=== PATIENT | female | born 1960 | race Caucasian/White ===

== ENCOUNTER 2016-12-11 14:51 | Emergency (ER) | payer MEDICAID, OTHER ==
[~2016-12-11] VITALS: Ht 154.9 cm; Wt 86.2 kg
[~2016-12-11 14:51] MED LIST: ALBU1.256 IH; FLUT1DIS5 IH; IPRA0.2S53 IH; MONT10TA22 PO
[2016-12-11 14:56] VITALS: BP_SYST 133
[2016-12-11] MEDS ORDERED: ALBUTEROL SULFATE 0.083% 2.5 MG/3 ML VIAL.NEB IH ONE (15:00)
[2016-12-11] MEDS ORDERED: IPRATROPIUM BROM 0.5 MG/2.5 ML VIAL.NEB (ATROVENT) IH ONE (15:00)
[2016-12-11] MEDS ORDERED: methylPREDNISolone SOD SUCC/PF 62.5 MG/ML VIAL IVP ONE (15:00)
[2016-12-11 15:56] LABS: BASOPHILS % (AUTO) 0.4 % (0.0-2.0); EOSINOPHILS # (AUTO) 0.1 K/uL (0.0-0.4); EOSINOPHILS % (AUTO) 1.3 % (0.0-4.0); HEMATOCRIT 38.9 % (36-48); HEMOGLOBIN 13.1 g/dL (12.0-16.0); LYMPHOCYTES # (AUTO) 1.3 K/uL (1.0-5.5); LYMPHOCYTES % (AUTO) 26.9 % (20.5-51.5); MEAN CORPUSCULAR HEMOGLOBIN 30 pg (27-31); MEAN CORPUSCULAR HGB CONC 34 % (32-36); MEAN CORPUSCULAR VOLUME 90 fL (79.0-98.0); MONOCYTES # (AUTO) 0.2 K/uL (0.0-1.0); MONOCYTES % (AUTO) 3.4 % (1.7-9.3); NEUTROPHILS # (AUTO) 3.1 K/uL (1.8-7.7); PLATELET COUNT (AUTO) 147 K/uL (130-430); RED BLOOD CELL COUNT(AUTO) 4.33 MIL/uL (4.2-6.2); RED CELL DISTRIBUTION WIDTH 12.6 % (9.0-15.0); WHITE BLOOD COUNT (AUTO) 4.7 K/uL (4.8-10.8)
[2016-12-11 16:02] LABS: PROTHROMBIN TIME 10.8 SECS (9.5-12.5)
[2016-12-11 16:20] LABS: CALCIUM 8.8 mg/dL (8.4-11.0); CREATININE 0.67 mg/dL (0.55-1.30); POTASSIUM 3.9 mmol/L (3.5-5.1)
[2016-12-11 17:42] VITALS: BP_SYST 143
== END 2016-12-11 17:42 | disposition home or self-care (01) ==
LOC: SED 14:51
DX: J45.901 Unspecified asthma with (acute) exacerbation (principal); I10 Essential (primary) hypertension; Z90.710 Acquired absence of both cervix and uterus; Z88.8 Allergy status to other drugs, medicaments and biological substances; Z91.018 Allergy to other foods
CPT/HCPCS: 36415; 71010; 80048; 83880; 84484; 85025; 85379; 85610; 85730; 93005; 94640; 96374; 99285; J2930

== ENCOUNTER 2020-01-03 20:02 | Emergency (ER) | payer BC, OTHER ==
[~2020-01-03] VITALS: Ht 154.9 cm; Wt 79.4 kg
[2020-01-03 20:02] VITALS: BP_SYST 156
[~2020-01-03 20:02] MED LIST changes: -ALBU1.256 IH; +ALBU1.257 IH
--- NOTE | 2020-01-03 20:05 | NUR ---
Patient to ER bed 2 to gown for evaluation. Side rails up.
--- NOTE | 2020-01-03 20:06 | NUR ---
ER Dr. Villa at bedside examining patient.
--- NOTE | 2020-01-03 20:07 | NUR ---
pt a&o x4 BIB ALS c/o of asthma exacerbation. pt reports sitting on her couch watching television with her cat on her lap when she started to wheeze, she took an albuterol treatment, but it did not seem to help or relieve her symptoms. pt called 911 for increased difficulty breathing. FIRE gave 0.5mg of EPI IM in the field. pt reports it helped relieve her symptoms. pt arrived on 2L NC with O2 sat of 96%. pt states she is allergic to cats. pt hx of asthma and HBP.
[2020-01-03] MEDS ORDERED: IPRATROPIUM/ALBUTEROL SULFATE 3 ML AMPUL.NEB (DUONEB) INH ONE (20:15)
[2020-01-03] MEDS ORDERED: methylPREDNISolone SOD SUCC/PF 62.5 MG/ML VIAL IVP ONE (20:15)
--- NOTE | 2020-01-03 20:25 | NUR ---
# 20 gauge angiocath placed to LAC. Use of asceptic technique. Opsite placed over site. Blood return noted. Flushed with 10 cc of normal saline. No evidence of infiltration noted. Patient tolerated well.
[2020-01-03 20:41] LABS: BASOPHILS # (AUTO) 0.1 K/uL (0.0-0.2); BASOPHILS % (AUTO) 1.6 % (0.0-2.0); EOSINOPHILS # (AUTO) 0.1 K/uL (0.0-0.4); EOSINOPHILS % (AUTO) 0.8 % (0.0-4.0); HEMATOCRIT 40.5 % (36-48); HEMOGLOBIN 13.9 g/dL (12.0-16.0); LYMPHOCYTES # (AUTO) 1.3 K/uL (1.0-5.5); LYMPHOCYTES % (AUTO) 17.5 % (20.5-51.5); MEAN CORPUSCULAR HEMOGLOBIN 31 pg (27-31); MEAN CORPUSCULAR HGB CONC 34 % (32-36); MEAN CORPUSCULAR VOLUME 91 fL (79.0-98.0); MONOCYTES # (AUTO) 0.3 K/uL (0.0-1.0); NEUTROPHILS # (AUTO) 5.7 K/uL (1.8-7.7); NEUTROPHILS % (AUTO) 76.1 % (40.0-70.0); PLATELET COUNT (AUTO) 217 K/uL (130-430); RED BLOOD CELL COUNT(AUTO) 4.44 MIL/uL (4.2-6.2); RED CELL DISTRIBUTION WIDTH 13.6 % (9.0-15.0); WHITE BLOOD COUNT (AUTO) 7.5 K/uL (4.8-10.8)
[2020-01-03 20:52] LABS: ANION GAP 10 (5-15); CALCIUM 9.2 mg/dL (8.4-11.0); CHLORIDE 105 mmol/L (98-107); CREATININE 0.95 mg/dL (0.55-1.30); GLUCOSE 208 mg/dL (70-99); POTASSIUM 3.4 mmol/L (3.5-5.1); SODIUM SERUM 141 mmol/L (136-145); UREA NITROGEN, BLOOD 23 mg/dL (8-21)
[2020-01-03 20:54] LABS: GFR AFRICAN AMERICAN 77 mL/min (>90)
[2020-01-03 21:00] LABS: ALANINE AMINOTRANSFERASE 19 U/L (12-78); ALBUMIN 3.8 g/dL (3.4-4.8); ASPARTATE AMINOTRANSFERASE 10 U/L (10-37); TOTAL BILIRUBIN 0.3 mg/dL (0.0-1.0)
--- NOTE | 2020-01-03 21:00 | NUR ---
pt states she is feeling much better, she is no longer experiencing chest tightness/pressure or shortness of breath. pt O2 sat of 97% on 2L NC. per MD, pt taken off 2L NC to assess how her oxygen saturation does on room air.
--- NOTE | 2020-01-03 21:06 | NUR ---
per patient request, called Corby to update him on status of patient.
--- NOTE | 2020-01-03 21:43 | NUR ---
pt O2 sat on room air is 95%. vital signs stable. lung sounds clear.
[2020-01-03 22:10] VITALS: BP_SYST 141
--- NOTE | 2020-01-03 22:10 | NUR ---
Patient given written and verbal discharge instructions and verbalizes understanding. ER MD discussed with patient the results and treatment provided. Patient in stable condition. ID arm band removed. IV catheter removed intact and dressing applied, no active bleeding. Rx of PREDNISONE given. Patient educated on pain management and to follow up with PMD. Pain Scale 0/10. Opportunity for questions provided and answered. Medication side effect fact sheet provided.
== END 2020-01-03 22:10 | disposition home or self-care (01) ==
LOC: SED 20:02
DX: J45.901 Unspecified asthma with (acute) exacerbation (principal); I10 Essential (primary) hypertension; Z79.899 Other long term (current) drug therapy; Z88.1 Allergy status to other antibiotic agents
CPT/HCPCS: 36415; 71045; 80053; 83880; 84484; 85025; 85379; 93005; 96374; 99285; J2930; 94640

== ENCOUNTER 2021-09-04 16:15 | Emergency (ER) | payer BC ==
[~2021-09-04] VITALS: Ht 154.9 cm; Wt 88.5 kg
[2021-09-04 16:15] VITALS: BP_SYST 151
[2021-09-04] MEDS ORDERED: methylPREDNISolone SOD SUCC/PF 62.5 MG/ML VIAL IVP ONE (16:30)
[2021-09-04] MEDS ORDERED: IPRATROPIUM/ALBUTEROL SULFATE 3 ML AMPUL.NEB (DUONEB) INH ONE (16:30)
[2021-09-04] MEDS ORDERED: MAGNESIUM SULFATE 50 ML IV ONE (16:30)
[2021-09-04] MEDS ORDERED: ALBU8.5H8 INH (18:50)
[2021-09-04] MEDS ORDERED: FLUT1DIS3 IH (18:50)
[2021-09-04] MEDS ORDERED: PRED20TA PO (18:50)
[2021-09-04 18:54] VITALS: BP_SYST 151
== END 2021-09-04 18:59 | disposition home or self-care (01) ==
LOC: SED 16:15
DX: J45.901 Unspecified asthma with (acute) exacerbation (principal); I10 Essential (primary) hypertension; Z88.8 Allergy status to other drugs, medicaments and biological substances
CPT/HCPCS: 71045; 94640; 96365; 96366; 96375; 99284; J2930; J3475; 94760

== ENCOUNTER 2022-05-01 08:30 | Inpatient (IN) | payer BC ==
[~2022-05-01] VITALS: Ht 154.9 cm; Wt 78.9 kg
[~2022-05-01 08:30] MED LIST changes: +ALBU8.5H8 INH; +FLUT1DIS3 IH; +PRED20TA PO
[2022-05-01 08:34] VITALS: BP_SYST 167
[2022-05-01] MEDS ORDERED: IPRATROPIUM BROM 0.5 MG/2.5 ML VIAL.NEB (ATROVENT) INH ONE ×2 (08:48→09:00)
[2022-05-01] MEDS ORDERED: predniSONE 20 MG TABLET PO ONE (09:00)
[2022-05-01] MEDS ORDERED: ALBUTEROL SULFATE 0.083% 2.5 MG/3 ML VIAL.NEB INH ONE (09:00)
[2022-05-01 09:55] LABS: BASOPHILS % (AUTO) 0.3 % (0.0-2.0); EOSINOPHILS % (AUTO) 0.9 % (0.0-4.0); HEMATOCRIT 39.5 % (36-48); HEMOGLOBIN 13.3 g/dL (12.0-16.0); LYMPHOCYTES # (AUTO) 0.5 K/uL (1.0-5.5); LYMPHOCYTES % (AUTO) 11.3 % (20.5-51.5); MEAN CORPUSCULAR HEMOGLOBIN 32 pg (27-31); MEAN CORPUSCULAR HGB CONC 34 % (32-36); MEAN CORPUSCULAR VOLUME 94 fL (79.0-98.0); MONOCYTES # (AUTO) 0.2 K/uL (0.0-1.0); MONOCYTES % (AUTO) 4.4 % (1.7-9.3); NEUTROPHILS # (AUTO) 3.9 K/uL (1.8-7.7); NEUTROPHILS % (AUTO) 83.1 % (40.0-70.0); PLATELET COUNT (AUTO) 174 K/uL (130-430); RED BLOOD CELL COUNT(AUTO) 4.19 MIL/uL (4.2-6.2); RED CELL DISTRIBUTION WIDTH 14.4 % (9.0-15.0); WHITE BLOOD COUNT (AUTO) 4.7 K/uL (4.8-10.8)
[2022-05-01 09:59] LABS: CALCIUM 8.6 mg/dL (8.4-11.0); CREATININE 0.7 mg/dL (0.55-1.30)
[2022-05-01 10:13] LABS: ALBUMIN 3.2 g/dL (3.4-4.8); TOTAL BILIRUBIN 0.5 mg/dL (0.0-1.0)
[2022-05-01] MEDS: ALBUTEROL MDI INHALATION 8 GM INH INH SCH ×3 (15:39→21:42)
[2022-05-01] MEDS ORDERED: HYDROcodone/ACETAMIN 5-325 MG TAB (NORCO/ VICODIN) PO PRN (23:30)
[2022-05-01] MEDS ORDERED: HYDROcodone/ACETAMIN 10-325 MG TAB PO PRN (23:30)
[2022-05-01] MEDS ORDERED: LORazepam 2 MG/ML VIAL IVP PRN (23:30)
[2022-05-01] MEDS ORDERED: NALOXONE HCL 0.4 MG/ML AMP (NARCAN) IVP PRN ×2 (23:30)
[2022-05-01] MEDS ORDERED: ACETAMINOPHEN 325 MG TABLET PO PRN (23:30)
[2022-05-01] MEDS ORDERED: ONDANSETRON HCL 4 MG/2 ML VIAL IVP PRN (23:30)
[2022-05-02] MEDS ORDERED: AZITHROMYCIN 500 MG/VIAL (ZITHROMAX) IV ONE (01:13)
[2022-05-02] MEDS ORDERED: cefTRIAXone 1 GM IVPB PREMIX 50 ML IV ONE (01:13)
[2022-05-02] MEDS: DEXAMETHASONE SOD PHOSPHATE 10 MG/ML VIAL IVP SCH (02:09)
[2022-05-02] MEDS: cefTRIAXone 1 GM IVPB PREMIX 50 ML IV SCH (02:09)
[2022-05-02] MEDS ORDERED: IPRATROPIUM BROM 0.5 MG/2.5 ML VIAL.NEB (ATROVENT) INH SCH (03:00)
[2022-05-02] MEDS ORDERED: ALBUTEROL SULFATE 0.083% 2.5 MG/3 ML VIAL.NEB INH SCH (03:00)
[2022-05-02] MEDS: AZITHROMYCIN 500 MG in NS 250 ML IV SCH (03:26)
[2022-05-02 05:08] VITALS: BP_SYST 144
[2022-05-02] MEDS: NORMAL SALINE 5 ML DISP.SYRIN IVF SCH ×6 (06:00→21:33)
[2022-05-02 07:02] LABS: HEMATOCRIT 36.2 % (36-48); HEMOGLOBIN 12.6 g/dL (12.0-16.0); LYMPHOCYTES # (AUTO) 0.4 K/uL (1.0-5.5); LYMPHOCYTES % (AUTO) 8.4 % (20.5-51.5); MEAN CORPUSCULAR HEMOGLOBIN 32 pg (27-31); MEAN CORPUSCULAR HGB CONC 35 % (32-36); MEAN CORPUSCULAR VOLUME 93 fL (79.0-98.0); MONOCYTES # (AUTO) 0.2 K/uL (0.0-1.0); MONOCYTES % (AUTO) 3.3 % (1.7-9.3); NEUTROPHILS # (AUTO) 4.5 K/uL (1.8-7.7); NEUTROPHILS % (AUTO) 88.3 % (40.0-70.0); PLATELET COUNT (AUTO) 199 K/uL (130-430); RED BLOOD CELL COUNT(AUTO) 3.91 MIL/uL (4.2-6.2); RED CELL DISTRIBUTION WIDTH 13.7 % (9.0-15.0); WHITE BLOOD COUNT (AUTO) 5.2 K/uL (4.8-10.8)
[2022-05-02 07:11] LABS: CALCIUM 8.5 mg/dL (8.4-11.0); CREATININE 0.4 mg/dL (0.55-1.30); PHOSPHORUS 2.3 mg/dL (2.7-4.5)
[2022-05-02 08:59] VITALS: BP_SYST 142
[2022-05-02] MEDS: FLUTICASONE 500 mCg/SALMETEROL 50 mCg DISKUS W.DEV IH SCH ×2 (09:00→21:00)
[2022-05-02] MEDS: ENOXAPARIN SODIUM 40 MG/0.4 ML SYRINGE SUBCUT SCH (09:53)
[2022-05-02] MEDS: MONTELUKAST 10 MG TABLET PO SCH (09:53)
[2022-05-02] MEDS: ALBUTEROL MDI INHALATION 8 GM INH INH SCH ×3 (12:03→18:25)
[2022-05-02 13:48] VITALS: BP_SYST 153
[2022-05-02 20:00] VITALS: BP_SYST 123
[2022-05-03] VITALS: BP_SYST 133
[2022-05-03] MEDS: DEXAMETHASONE SOD PHOSPHATE 10 MG/ML VIAL IVP SCH (00:21)
[2022-05-03] MEDS: cefTRIAXone 1 GM IVPB PREMIX 50 ML IV SCH (00:21)
[2022-05-03] MEDS: AZITHROMYCIN 500 MG in NS 250 ML IV SCH (01:08)
[2022-05-03] MEDS: NORMAL SALINE 5 ML DISP.SYRIN IVF SCH ×4 (06:00→13:21)
[2022-05-03] MEDS: ALBUTEROL MDI INHALATION 8 GM INH INH SCH ×4 (06:22→14:31)
[2022-05-03] MEDS: ENOXAPARIN SODIUM 40 MG/0.4 ML SYRINGE SUBCUT SCH (08:46)
[2022-05-03] MEDS: MONTELUKAST 10 MG TABLET PO SCH (08:46)
[2022-05-03] MEDS: FLUTICASONE 500 mCg/SALMETEROL 50 mCg DISKUS W.DEV IH SCH (08:51)
[2022-05-03 10:16] VITALS: BP_SYST 123
[2022-05-03] MEDS ORDERED: VITA250012 PO (12:06)
[2022-05-03] MEDS ORDERED: ASCO500T20 PO (12:06)
[2022-05-03] MEDS ORDERED: DEC1 PO (12:06)
[2022-05-03 12:50] VITALS: BP_SYST 128
== END 2022-05-03 15:15 | disposition home or self-care (01) | DRG 871 ==
LOC: SED 08:30 → SMU 12:31
PROVIDERS: ADMIT Specialist; ATTEND Specialist
DX: A41.9 Sepsis, unspecified organism (principal); J96.01 Acute respiratory failure with hypoxia; U07.1 COVID-19; J44.1 Chronic obstructive pulmonary disease with (acute) exacerbation; J45.901 Unspecified asthma with (acute) exacerbation; E66.9 Obesity, unspecified; T38.0X5A Adverse effect of glucocorticoids and synthetic analogues, initial encounter; I10 Essential (primary) hypertension; Z88.8 Allergy status to other drugs, medicaments and biological substances; Z91.018 Allergy to other foods; Z91.09 Other allergy status, other than to drugs and biological substances; Z68.32 Body mass index [BMI] 32.0-32.9, adult; Y92.89 Other specified places as the place of occurrence of the external cause
CPT/HCPCS: 36415; 71045; 80048; 80053; 83735; 84100; 85025; 94640; 94760; 99285; J0456; J0696; J1100; J1650; J7040; J7050; J7512; J7613